=== PATIENT | female | born 1965 | race Caucasian/White ===

== ENCOUNTER 2016-06-07 20:05 | Emergency (ER) | payer MEDICAID ==
[~2016-06-07] VITALS: Ht 167.6 cm; Wt 54.4 kg
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
[2016-06-07] MEDS ORDERED: CARI350T PO (20:37)
[2016-06-07] MEDS ORDERED: CLON2TAB4 PO (20:37)
[2016-06-07] MEDS ORDERED: LISI40TA4 PO (20:38)
[2016-06-07] MEDS ORDERED: DULO60CA45 PO (20:38)
[2016-06-07] MEDS ORDERED: LEVO125T8 PO (20:39)
[2016-06-07] MEDS ORDERED: GABA-534 PO (20:39)
[2016-06-07] MEDS ORDERED: IBUP-1482 PO (20:40)
[2016-06-07] MEDS ORDERED: METH10TA2 PO (20:40)
[2016-06-07] MEDS ORDERED: CLONAZEPAM 0.5 MG TABLET PO ONE (20:45)
[2016-06-07] MEDS ORDERED: CLONAZEPAM 0.5 MG TABLET ONE ×2 (20:59→21:05)
[2016-06-07] MEDS ORDERED: CARISOPRODOL 350 MG TABLET PO ONE (21:00)
[2016-06-07] MEDS ORDERED: CARISOPRODOL 350 MG TABLET ONE (21:06)
--- NOTE | 2016-06-07 21:47 | NUR ---
Patient discharged to home in stable conditon. Written and verbal after care instructions given. Patient verbalizes understanding of instructions. Pt walked out of ER unassisted with belongings at side...
[2016-06-07 21:50] VITALS: BP 136/97
== END 2016-06-07 21:51 | disposition home or self-care (01) ==
LOC: ER 20:05
DX: Z76.0 Encounter for issue of repeat prescription (principal); M25.511 Pain in right shoulder; M25.531 Pain in right wrist; I10 Essential (primary) hypertension; F31.9 Bipolar disorder, unspecified; Z59.0 Homelessness; Z88.2 Allergy status to sulfonamides; Z88.0 Allergy status to penicillin; Y09 Assault by unspecified means
CPT/HCPCS: 73030; 73110; A4663

== ENCOUNTER 2016-07-23 09:28 | Emergency (ER) | payer MEDICAID, OTHER ==
[~2016-07-23] VITALS: Ht 167.6 cm; Wt 59.0 kg
[~2016-07-23 09:28] MED LIST: CARI350T PO; CLON2TAB4 PO; DULO60CA45 PO; GABA-534 PO; IBUP-1482 PO; LEVO125T8 PO; LISI40TA4 PO; METH10TA2 PO
--- NOTE | 2016-07-23 09:32 | NUR ---
pt able to verbalize her needs clearly.
--- NOTE | 2016-07-23 09:51 | NUR ---
pt refusing in and out cath at this point. notified.
[2016-07-23 10:19] LABS: BASOPHILS # (AUTO) 0.1 K/uL (0.0-8.0); BASOPHILS % (AUTO) 0.8 % (0.0-2.0); EOSINOPHILS % (AUTO) 0.5 % (0.0-7.0); HEMATOCRIT 37.3 % (37-47); HEMOGLOBIN 12.9 G/DL (12.0-16.0); LYMPHOCYTES # (AUTO) 1.6 K/uL (20.0-40.0); LYMPHOCYTES % (AUTO) 20.2 % (20.5-51.5); MEAN CORPUSCULAR HEMOGLOBIN 30.1 UUG (27.0-31.0); MEAN CORPUSCULAR HGB CONC 35 g/dL (32.0-37.0); MEAN CORPUSCULAR VOLUME 86.8 FL (81.0-99.0); MONOCYTES # (AUTO) 0.6 K/uL (2.0-10.0); NEUTROPHILS # (AUTO) 5.5 K/uL (1.8-8.9); NEUTROPHILS % (AUTO) 70.5 % (38.5-71.5); PLATELET COUNT (AUTO) 266 K/UL (150-450); RED CELL DISTRIBUTION WIDTH 13.7 % (11.5-14.5); WHITE BLOOD COUNT (AUTO) 7.8 K/UL (4.0-11.2)
[2016-07-23 10:21] LABS: *BILIRUBIN,URIN NEGATIVE (NEGATIVE); *BLOOD, URINE NEGATIVE (NEGATIVE); *CLARITY,URINE CLOUDY (CLEAR); *COLOR,URINE LIGHT YELLOW (YELLOW); *KETONES,URINE NEGATIVE (NEGATIVE); *PROTEIN,URINE NEGATIVE (NEGATIVE); NITRITE, URINE NEGATIVE (NEGATIVE); UGLUCOSE NEGATIVE (NEGATIVE)
[2016-07-23 10:22] LABS: LEUKOCYTE ESTERASE ,URINE TRACE (NEGATIVE)
[2016-07-23 10:24] LABS: CALCIUM 10.2 mg/dL (8.5-10.1); CARBON DIOXIDE 24 mmol/L (21-32); CHLORIDE 103 mmol/L (98-107); CREATININE 0.8 mg/dL (0.6-1.3); GFR 76 mL/min (>60); GLUCOSE 101 mg/dL (74-106); POTASSIUM 3.8 mmol/L (3.5-5.1); SODIUM SERUM 139 mmol/L (136-145); UREA NITROGEN, BLOOD 10 mg/dL (7-18)
[2016-07-23 10:30] LABS: ALANINE AMINOTRANSFERASE 23 U/L (14-59); ALBUMIN 4.1 g/dL (3.4-5.0); ALKALINE PHOSPHATASE 69 U/L (50-136); ASPARTATE AMINOTRANSFERASE 26 U/L (15-37); BILIRUBIN,DIRECT 0.2 mg/dL (0.0-0.2); BILIRUBIN,TOTAL 0.7 mg/dL (0.2-1.0); ETHANOL < 3 MG/DL (0-0); TOTAL PROTEIN, SERUM 7.7 g/dL (6.4-8.2)
[2016-07-23 10:32] LABS: *AMPHETAMINE, URINE POSITIVE (NEGATIVE); *BARBITURATE, URINE NEGATIVE (NEGATIVE); *CANNABINOID, URINE POSITIVE (NEGATIVE); *COCCAINE, URINE NEGATIVE (NEGATIVE); *OPIATE, URINE NEGATIVE (NEGATIVE); *PHENCYCLIDINE SCREEN,URINE NEGATIVE (NEGATIVE)
[2016-07-23 10:33] LABS: BACTERIA,URINE MANY /HPF (NONE SEEN); RBC,URINE NONE SEEN /HPF (0-3); SQUAMOUS EPITHELIAL CELL,UR FEW /HPF (NONE SEEN); URINE AMORPHOUS PHOSPHATES MANY /HPF; WBC,URINE 0-3 /HPF (0-3)
--- NOTE | 2016-07-23 11:07 | NUR ---
geriatric social work professor was called and left a meeage.
--- NOTE | 2016-07-23 11:21 | NUR ---
claudia social media coordinator in er to assisst the pt.
--- NOTE | 2016-07-23 12:30 | NUR ---
pt co general body pain, md notified.
--- NOTE | 2016-07-23 12:37 | NUR ---
pt and another prson at bedside talking topt and er md .
--- NOTE | 2016-07-23 12:44 | NUR ---
Patient discharged to home in stable conditon. Written and verbal after care instructions given. Patient verbalizes understanding of instructions.pt accompanied and under care of by and another person. pt awake, axox4. Addendum: 07/23/16 at 1255 by GLO pt was accompanied by boy friend , not the . boy friend and pt charo that will harsha for a methadone clinic after the d/c.
[2016-07-23] MEDS ORDERED: HYDROXYZINE PAMOATE 25 MG CAPSULE PO PRN (12:45)
[2016-07-23 12:57] VITALS: BP 134/79
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
--- NOTE | 2016-07-23 13:29 | NUR ---
12:05pm: Patient walked out of her room to ask SW if SW can call patient's mother. ENRICO obtained contact information for patient's mother: Alena [phone]. ENRICO called the phone number provided, and the phone went to voicemail. ENRICO left a voicemail message stating "I am looking for Alena, if this is the correct phone number, please call [facility] ED at [phone]. ENRICO also noticied another phone number on patient's facesheet that was listed under the name Alena. This number was [phone]. SW called this number too and it also went to voicemail. SW left the same message stated above. ENRICO informed ED policy cancellation clerk Amol who stated that he too had tried calling the phone number listed on the facesheet and had left a message too. ENRICO was then informed by ED staff that patient had visitors. ENRICO went to the ED waiting room and met with 2 gentleman. One identified himself as patient's boyfriend Easton, and the second was a friend. Easton asked if they could see patient. ENRICO asked them to wait under ENRICO asked patient if she wanted visitors. ENRICO asked patient if she wanted her boyfriend and friend to come in, and patient agreed. ENRICO escorted Easton and the friend to patient's room. Dr. Peraza informed.
--- NOTE | 2016-07-23 13:35 | NUR ---
12:35pm: ENRICO received a phone call from ED RN Ben, who stated that Dr. Peraza is discharging the patient because the boyfriend wants to take her to a meth clinic. Patient had agreed. ENRICO consulted with Dr. Peraza who stated that patient had retracted her previous SI (see MD notes). ENRICO consulted with Director Jessica Mullen; ENRICO then called Crisis SW Fatemeh Lizette [phone] and cancelled her services.
== END 2016-07-23 12:59 | disposition home or self-care (01) ==
LOC: ER 09:28
DX: F11.23 Opioid dependence with withdrawal (principal); I10 Essential (primary) hypertension; F17.200 Nicotine dependence, unspecified, uncomplicated; F31.9 Bipolar disorder, unspecified; Z59.0 Homelessness; Z88.0 Allergy status to penicillin; Z88.2 Allergy status to sulfonamides
CPT/HCPCS: 36415; 80307; 85025; A4663; G0480-TC; G6040-TC

== ENCOUNTER 2021-02-04 08:15 | Emergency (ER) | payer OTHER ==
[~2021-02-04] VITALS: Ht 162.6 cm; Wt 86.2 kg
[~2021-02-04 08:15] MED LIST changes: +CLON2TAB11 PO; -CLON2TAB4 PO; -IBUP-1482 PO; +IBUP-1957 PO; +LISI40TA13 PO; -LISI40TA4 PO; +METH-817 PO; -METH10TA2 PO
[2021-02-04] MEDS ORDERED: IV NORMAL SALINE 1000 ML BAG IV ONE (08:30)
[2021-02-04] MEDS ORDERED: ONDANSETRON 4 MG/2 ML VIAL IV ONE (08:30)
--- NOTE | 2021-02-04 08:58 | NUR ---
PT IS IN ROOM #2B. DR BARGER EVALUATED THE PT.
[2021-02-04] MEDS ORDERED: ONDANSETRON 4 MG/2 ML VIAL ONE (09:01)
[2021-02-04 09:12] LABS: HEMATOCRIT 37.8 % (31.2-41.9); MEAN CORPUSCULAR HEMOGLOBIN 30.7 uug (24.7-32.8); MEAN CORPUSCULAR VOLUME 90.1 fL (75.5-95.3); PLATELET COUNT (AUTO) 227 K/uL (179-408)
[2021-02-04] MEDS ORDERED: PANTOPRAZOLE SODIUM IV 40 MG in IV DEXTROSE 5% 100 ML IV ONE (09:15)
[2021-02-04 09:16] LABS: *OCCULT BLOOD STOOL POSITIVE (NEGATIVE)
[2021-02-04 09:20] LABS: CREATININE 0.9 mg/dL (0.6-1.3); POTASSIUM 4.1 mmol/L (3.5-5.1)
[2021-02-04 09:25] LABS: BILIRUBIN,DIRECT 0.1 mg/dL (0.0-0.2); BILIRUBIN,TOTAL 0.2 mg/dL (0.2-1.0); TOTAL PROTEIN, SERUM 6.7 g/dL (6.4-8.2)
[2021-02-04] MEDS ORDERED: PANTOPRAZOLE SODIUM 40 MG VIAL ONE (09:30)
[2021-02-04] MEDS ORDERED: CIPR500T5 PO (11:03)
[2021-02-04] MEDS ORDERED: PANT20TA2 PO (11:03)
[2021-02-04] MEDS ORDERED: ONDA4TAB5 PO (11:03)
[2021-02-04] MEDS ORDERED: METR500T PO (11:03)
--- NOTE | 2021-02-04 11:27 | NUR ---
PT WAS D/C'd TO HOME. D/C INSTRUCTIONS GIVEN TO THE PT BY DR BARGER.
[2021-02-04] MEDS ORDERED: PANTOPRAZOLE SODIUM 40 MG VIAL IV ONE (11:30)
[2021-02-04 11:31] VITALS: BP 132/79
== END 2021-02-04 11:31 | disposition home or self-care (01) ==
LOC: ER 08:16
DX: K92.2 Gastrointestinal hemorrhage, unspecified (principal); R11.2 Nausea with vomiting, unspecified; R19.7 Diarrhea, unspecified; R10.84 Generalized abdominal pain; G40.909 Epilepsy, unspecified, not intractable, without status epilepticus; F31.9 Bipolar disorder, unspecified; I10 Essential (primary) hypertension; Z87.11 Personal history of peptic ulcer disease; Z86.19 Personal history of other infectious and parasitic diseases; M79.7 Fibromyalgia; Z88.0 Allergy status to penicillin; Z88.2 Allergy status to sulfonamides; Z88.8 Allergy status to other drugs, medicaments and biological substances; F11.20 Opioid dependence, uncomplicated; Z79.899 Other long term (current) drug therapy
CPT/HCPCS: 36415; 74176; 80048; 80076; 82270; 83690; 85025; 86850; 86900; 86901; 93005; 96361; 96374; 96375; 99285; C9113; J2405; A4663

== ENCOUNTER 2021-02-26 14:40 | Emergency (ER) | payer OTHER ==
[~2021-02-26] VITALS: Ht 162.6 cm; Wt 86.2 kg
[~2021-02-26 14:40] MED LIST changes: +CIPR500T5 PO; +METR500T PO; +ONDA4TAB5 PO; +PANT20TA2 PO
[2021-02-26] MEDS ORDERED: ONDANSETRON 4 MG/2 ML VIAL IV ONE (15:00)
[2021-02-26] MEDS ORDERED: KETOROLAC TROMETHAMINE 15 MG INJ IVP ONE (15:15)
[2021-02-26] MEDS ORDERED: ONDANSETRON 4 MG/2 ML VIAL ONE (15:15)
[2021-02-26] MEDS ORDERED: KETOROLAC TROMETHAMINE 15 MG INJ ONE (15:17)
[2021-02-26] MEDS: KETOROLAC TROMETHAMINE 30 MG INJ IM ONE (15:33)
[2021-02-26] MEDS: ONDANSETRON ODT 4 MG TAB.RAPDIS SL ONE (15:34)
[2021-02-26] MEDS ORDERED: ONDANSETRON ODT 4 MG TAB.RAPDIS ONE (15:38)
[2021-02-26] MEDS ORDERED: KETOROLAC TROMETHAMINE 30 MG INJ ONE (15:38)
--- NOTE | 2021-02-26 15:42 | NUR ---
Unable to establish IV access after 2 attempts. Per pt request and ok by provider, medications administered as IM and PO. Labs drawn via straight stick.
[2021-02-26 15:47] LABS: HEMATOCRIT 37.5 % (31.2-41.9); MEAN CORPUSCULAR HEMOGLOBIN 30.4 uug (24.7-32.8); MEAN CORPUSCULAR VOLUME 90.7 fL (75.5-95.3); PLATELET COUNT (AUTO) 207 K/uL (179-408)
[2021-02-26 15:52] LABS: CREATININE 0.9 mg/dL (0.6-1.3); POTASSIUM 4.2 mmol/L (3.5-5.1)
[2021-02-26] MEDS ORDERED: ACET-2154 PO ×2 (15:55)
[2021-02-26 15:58] LABS: BILIRUBIN,TOTAL 0.2 mg/dL (0.2-1.0); TOTAL PROTEIN, SERUM 7.2 g/dL (6.4-8.2)
--- NOTE | 2021-02-26 16:08 | NUR ---
Per pt, housing assistance during quarantine will be provided from current housing location. Patient discharged to home in stable condition. Written and verbal after care instructions given. Patient verbalizes understanding of instructions. Stressed follow up or return to ER for worsening s/s.
[2021-02-26 16:15] VITALS: BP 119/67
== END 2021-02-26 16:15 | disposition home or self-care (01) ==
LOC: ER 14:40
DX: U07.1 COVID-19 (principal); Z59.01 Sheltered homelessness; F17.200 Nicotine dependence, unspecified, uncomplicated; F11.20 Opioid dependence, uncomplicated; Z88.0 Allergy status to penicillin; Z88.2 Allergy status to sulfonamides; Z88.8 Allergy status to other drugs, medicaments and biological substances; M79.7 Fibromyalgia; I10 Essential (primary) hypertension; F31.9 Bipolar disorder, unspecified; Z79.899 Other long term (current) drug therapy
CPT/HCPCS: 36415; 71045; 80053; 85025; 87426; 96372; 99284; J1885; A4663; J2405; Q0162

== ENCOUNTER 2021-06-11 16:01 | Emergency (ER) | payer SELFPAY ==
[~2021-06-11] VITALS: Ht 162.6 cm; Wt 90.7 kg
[~2021-06-11 16:01] MED LIST changes: +ACET-2154 PO
--- NOTE | 2021-06-11 22:04 | NUR ---
Pt called from waiting room and outside, no answer. Patient left without being seen by ER physician.
== END 2021-06-11 22:05 | disposition left against medical advice (07) ==
LOC: ER 16:04
DX: Z53.21 Procedure and treatment not carried out due to patient leaving prior to being seen by health care provider (principal)